=== PATIENT | female | born 1945 | race Caucasian/White ===

== ENCOUNTER 2018-01-21 00:46 | Inpatient (IN) | payer MEDICARE, BC ==
[2018-01-21] MEDS ORDERED: Ondansetron ODT 4 MG TAB ONE (01:00)
[2018-01-21] MEDS ORDERED: Ketorolac Tromethamine 30 MG/ML VIAL ONE (03:47)
[2018-01-21 04:20] LABS: CKMB 1.4 ng/mL (0-6.6); Troponin I Less than 0.010 ng/mL (< 0.028)
[2018-01-21 05:20] VITALS: BMI 22.7
[2018-01-21] MEDS ORDERED: Dextrose 5% in Water 1,000 ML IV PRN (05:30)
[2018-01-21] MEDS ORDERED: hydrALAZINE 20 MG/ML VIAL SLOW IVP PRN (05:30)
[2018-01-21] MEDS ORDERED: Sodium Chloride 0.9% 1,000 ML IV SCH (05:30)
[2018-01-21] MEDS ORDERED: Ondansetron ODT 4 MG TAB PO PRN (05:30)
[2018-01-21] MEDS ORDERED: Ondansetron HCl/PF 4 MG/2 ML Vial IVP PRN (05:30)
[2018-01-21] MEDS ORDERED: Dextrose 50% Abboject 50 ML SYRINGE SLOW IVP PRN ×2 (05:30)
[2018-01-21 05:44] LABS: #Basophils 0.1 thou/uL (0.0-0.2); #Eosinphils 0.3 thou/uL (0.0-0.7); #Lymphocytes 2.6 thou/uL (1.20-3.40); #Monocytes 0.9 thou/uL (0.11-0.59); #Neutrophils 8.4 thou/uL (1.40-6.50); %Basophils 0.7 % (0.0-1.0); %Eosinophils 2.2 % (0.0-10.0); %Lymphocytes 21.3 % (21.0-51.0); %Monocytes 7.2 % (0.0-10.0); %Neutrophils 68.6 % (42.0-75.0); Hemoglobin 11.6 g/dL (12.0-16.0); Mean Corpuscular HGB CONC 31.8 g/dL (32.0-36.0); Mean Corpuscular Hemoglobin 29.3 pg (27.0-31.0); Mean Corpuscular Volume 92.1 fL (78.0-98.0); Mean Platelet Volume 6.5 fL (7.4-10.4); Platelet Count 313 thou/uL (130-400); RBC Distribution Width 14.3 % (11.5-14.5); Red Blood Cell (RBC) Count 3.96 mill/uL (4.20-5.40); White Blood Cell (WBC) Count 12.2 thou/uL (4.8-10.8)
[2018-01-21 05:52] LABS: Anion Gap 12 mmol/L (10-20); BUN (Urea Nitrogen) 20 mg/dL (9.8-20.1); Calc. Creatinine Clearance 54 mL/min (70-130); Carbon Dioxide 25 mmol/L (23-31); Chloride 104 mmol/L (98-107); Estimated GFR-MDRD 68; Potassium 4.1 mmol/L (3.5-5.1); Sodium 137 mmol/L (136-145)
[2018-01-21 05:53] LABS: Calcium 9.7 mg/dL (7.8-10.44); Glucose 80 mg/dL (83-110); Magnesium 1.9 mg/dL (1.6-2.6); Phosphorus 3.7 mg/dL (2.3-4.7)
--- NOTE | 2018-01-21 07:49 | RAD ---
PORTABLE CHEST: Date: 01/21/18 HISTORY: Syncope. FINDINGS: Lungs are clear. No evidence of infiltrate or vascular congestion. Heart and mediastinum unremarkabl e. IMPRESSION: No acute abnormality identified. POS: [facility]
[2018-01-21] MEDS ORDERED: Meclizine HCl 12.5 MG TAB PO PRN (07:55)
--- NOTE | 2018-01-21 10:27 | PRG ---
DATE OF SERVICE: 01/21/2018 I personally interviewed and examined the patient and agree with documentation of Etelvina Kendrick PA-C dated 01/21/2018. SUBJECTIVE: Briefly, Ms. Donna Shukla is a 72-year-old woman who has had a couple of falls recently and yesterday with more significant of the two. She fell backwards and struck her head on concrete. She was taken to our emergency department where an occipital fracture was noted on the right side a nd some positional vertigo was felt as well. She was transferred here for further care. There is no intracranial hemorrhage, mass effect or other injury. Overnight, Ms. Shukla's vision has been the same. She feels a sense of motion with her vision, even though her body is not moving. Her other cranial nerves are working well and there is no lateralizi ng motor or sensory deficits that I can appreciate. CT examination was reviewed carefully. There is no intracranial hemorrhage. There is no contusion. There is no mass effect. There is no subarachn oid blood. There is a linear fracture in the occipital bone of the right side that is well approxima shawna. A CT examination of the cervical spine showed a wide spinal canal and no acute fracture or dislocatio n. Ms. Shukla had the closed head injury resulted in a skull fracture and vertigo. I told her to be ve ry careful about changing body positions quickly, to hold on to objects like a walker, the wall or a piece of furniture for a few seconds or the vertiginous symptoms settle before trying to walk, I do n ot want her falling and striking her head again. The skull fracture itself does not require surgical intervention. She can be discharged anytime. If the vertiginous symptoms continue for more than 3 weeks, she can go to otolaryngology for Kimberly-Hallpi ke maneuvers.
[2018-01-21] MEDS ORDERED: ALPRAZolam 0.5 MG TAB PO PRN (10:43)
--- NOTE | 2018-01-21 10:58 | PRG ---
DATE OF SERVICE: 01/21/2018 Please see Taco Mcclellan's complete H&P for details. SUBJECTIVE: Briefly, Ms. Shukla is a 72-year-old female who presents after a fall, seen in the [facility] department with some vertigo. Dr. Sweet has seen her and recommends no further therapy. PLAN: To get her up for some physical therapy today and see how she does. Possible discharge later.
[2018-01-21] MEDS ORDERED: Amlodipine 5 MG TAB PO SCH (11:45)
[2018-01-21] MEDS ORDERED: Atorvastatin Calcium 40 MG TAB PO SCH (11:45)
[2018-01-21] MEDS ORDERED: Calcium Carbonate + Vit D 1 TAB PO SCH ×2 (11:45→21:00)
[2018-01-21] MEDS ORDERED: cycloSPORINE 0.05% Ophthalmic Droperette EA EYE SCH ×2 (11:45→21:00)
[2018-01-21] MEDS ORDERED: Multivitamin W/ Minerals 1 TAB PO SCH (11:45)
[2018-01-21] MEDS ORDERED: Glimepiride 2 MG TAB PO SCH (11:45)
[2018-01-21] MEDS ORDERED: predniSONE 5 MG TAB PO SCH (11:45)
[2018-01-21 11:59] VITALS: TEMP 98
--- NOTE | 2018-01-21 13:04 | EKG ---
Test Reason : FALL Blood Pressure : / mmHG Vent. Rate : 077 BPM Atrial Rate : 077 BPM P-R Int : 208 ms QRS Dur : 090 ms QT Int : 412 ms P-R-T Axes : 060 015 048 degrees QTc Int : 466 ms Normal sinus rhythm Possible Left atrial enlargement Borderline ECG Confirmed by PATRICK HILL, SUNIL ([id number]), deputy editor in chief LEANDRA DONATO ([id number]) on 01/21/2018 1:03:40 PM Referred By: Confirmed By:SUNIL NGUYEN MD
[2018-01-21] MEDS ORDERED: Acetaminophen 500 MG TAB PO PRN (13:31)
[2018-01-21] MEDS ORDERED: Ibuprofen 200 MG TAB PO PRN (13:53)
[2018-01-21 15:39] VITALS: BP 145/84
--- NOTE | 2018-01-21 16:10 | HP ---
DATE OF ADMISSION: 01/21/2018 REQUESTING PHYSICIAN: Dr. Guerin. ATTENDING SURGEON: Dr. Ignacio. CONSULTATION: Neurosurgery, Dr. Sweet. HISTORY OF PRESENT ILLNESS: The patient is a 72-year-old woman, who was working in her gar den today when she suddenly fell. She is unsure if she tripped over the rock in the garden or if she had some sort of syncopal episode. She just knows that she fell backwards and struck her head on th e rocks. The patient had a cortical short duration of an altered mental status. The patient was abl e to get herself up, get into the house and notified EMS. The EMS took her to [place] where she underwent evaluation and examination and was noted to have a nondisplaced right occipital fracture. The remainder of her exam there was unremarkable. They have discussed her case with Dr. Sweet a nd he recommended that she was able to be discharged and then she would follow up as an outpatient. Prior to the patient being discharged, she suddenly became very dizzy and started having some visual changes, at which time they transferred to our facility for admission and observation. ALLERGIES: PENICILLINS, SINGULAIR, TETRACYCLINE, DOXYCYCLINE. CURRENT MEDICATIONS: Atorvastatin, lisinopril, Norvasc, sertraline, glipizide, Levemir, Xanax and me thotrexate. PAST MEDICAL HISTORY: Rheumatoid arthritis, hyperlipidemia, hypertension, diabetes. PAST SURGICAL HISTORY: Bilateral knee replacement, left rotator cuff repair, heart catheterization w ith no stent, hemorrhoidectomy. SOCIAL HISTORY: The patient currently lives at home with her . She denies drug, tobacco or a lcohol use. REVIEW OF SYSTEMS: A 10-point review of systems is negative unless otherwise stated. PHYSICAL EXAMINATION: VITAL SIGNS: Blood pressure 146/54, heart rate 74, respirations 18, oxygen saturation 95% on room ai r, temperature is 98.6. GENERAL: The patient is resting comfortably in the ER bed. She is awake, alert, and oriented x3. G lasgow coma scale is 15. HEENT: Head is normocephalic with tender to palpation to her right occiput consistent with her fract ure. Eyes: Extraocular motion intact. The patient does have some lateral nystagmus. Otherwise, pu pils are PERRLA. Ears are atraumatic without discharge. Nose is atraumatic without discharge. Orop harynx is clear. NECK: Nontender to the midline. The patient does have some right-sided paraspinous tenderness to pa lpation. Trachea is midline. No JVD. CHEST: Clear to auscultation with good inspiratory and expiratory effort. HEART: Regular rate and rhythm. ABDOMEN: Soft, flat, nontender with active bowel sounds. Pelvis is stable. EXTREMITIES: Neurovascularly intact x4. Strength is 5/5. Capillary refill is less than 3 seconds. Pulses are 2+. BACK: Nontender and atraumatic. LABORATORY FINDINGS: Primarily all labs are still pending. Her CK-MB is 1.4. Her troponin is less than 0.010. RADIOGRAPHIC FINDINGS: CT of the brain without contrast shows a nondisplaced right occipital bone fr acture with small posterior midline scalp soft tissue hematoma, no acute post-traumatic or intracrani al sequela. CT of the C-spine without contrast shows no evidence of cervical spine fracture. ASSESSMENT AND PLAN: 1. Status post ground level fall. 2. Possible syncope. 3. Nondisplaced right occipital fracture. 4. Postconcussive syndrome. Plan will be to admit the patient to telemetry floor. We will evaluate her labs and then discussed p ursuing of further syncopal type workup though with the further discussion with the patient, it sound s like this is going to be most likely just a mechanical fall. The patient will have pulmonary toile t, gastritis, mechanical VTE prophylaxis started. We will ask the neurosurgeons to evaluate her in t he morning. The evaluation, examination, laboratory and radiographic findings will be discussed with Dr. Ignacio .
--- NOTE | 2018-01-21 19:49 | CON ---
DATE OF CONSULTATION: 01/21/2018 CHIEF COMPLAINT: Fall, skull fracture, headache and vertigo. HISTORY OF PRESENT ILLNESS: This is a very pleasant 72-year-old female who reports that she was watering her garden last night and fell backwards and hit her head on a concrete step. She states that she is unsure why she lost her balance. She denies any dizziness at that time or weakness. She states that she did not lose consciousness. The patient was taken to the ER at [place] who reported a linear skull fracture posteriorly and no neurological deficits at the time. She was going to be discharged from the [place] ER; however, she started to have some positional vertigo as well as blurriness in her vision. She was transferred to [place] last night. She has been admitted through trauma. The patient states that her pain is currently a 6/10. She denies any muscle weakness, numbness or tingling. Her pain is in the posterior aspect of her skull, as well as a dull headache. The patient states that she is dizzy if she sits up or moves, change position. If she has been reading, some signs; she says that they move side to side a little bit. PAST MEDICAL HISTORY: Significant for rheumatoid arthritis, hyperlipidemia, diabetes, and hypertension. FAMILY HISTORY: Mother from cancer. PAST SURGICAL HISTORY: Bilateral knee replacements, left rotator cuff, heart catheterization with no stents and hemorrhoidectomy. SOCIAL HISTORY: She is a nonsmoker. She does not drink any alcohol, does not use any other drugs. ALLERGIES: AMOXICILLIN, AUGMENTIN, DOXYCYCLINE, MONTELUKAST sodium, POTASSIUM Clavulanate, SINGULAIR and TETRACYCLINE. REVIEW OF SYSTEMS: Positive for dizziness and vertigo. Patient denies any changes in hearing. No difficulty swallowing or sore throat. No abdominal pain or vomiting. She has had occasional nausea since last night. The patient denies any bowel or bladder dysfunction. No diarrhea, constipation or muscle aches. PHYSICAL EXAMINATION: VITAL SIGNS: T-max 97.8, heart rate 71, BP 157/72. GENERAL: Patient is comfortable in her hospital room. She is alert and oriented to person, place and time. No apparent distress. HEAD: The patient has a hematoma on the posterior occiput, normocephalic. EYES: Pupils are equal, round, and reactive to light. Extraocular muscles are intact. Nystagmus is present. ENT: Nose exam is normal. No deformity, bleeding. Mouth exam is normal. Mucous membranes are moist. NECK: Normal range of motion. Trachea is midline. RESPIRATORY: The patient is breathing, relaxed on normal room air. Symmetrical chest rise. CARDIOVASCULAR: Heart rate and rhythm normal. NEUROLOGIC: Patient is alert and oriented x3. Cranial nerves II-XII are intact. Speech is normal, fluid and spontaneous. Normal fund of knowledge, recent and distant memory is intact. There are no focal motor deficits in upper or lower extremities. Patient has slight decreased sensation on the right side of her body. IMAGING: CT skull right side occipital fracture. No bleeding noted in the brain, CT of the neck wide cervical canal. No sign of fracture. ASSESSMENT: There is a right occiput fracture and positional vertigo. PLAN: #1 The skull fracture will heal on its own, at this time, she does not need any neurosurgical intervention. #2 Positional vertigo is accosicated with the fx and its should progressively improve over the next 2-3 weeks; however, if it does not, she should see ENT. Patient has been informed to change position slowly. She should take a few seconds and wait for the room to stop moving as she changes position from laying to sitting, sit to standing, and make sure she has something to hold onto if her vertigo gets worse while she is moving. Patient reveals understanding. DAWIT
[2018-01-21] MEDS ORDERED: [UNRECOGNIZED DRUG - OTHER] PO SCH (21:00)
[2018-01-21] MEDS ORDERED: VIT C CA PO SCH (21:00)
[2018-01-21] MEDS ORDERED: CHONDRO SU A PO SCH (21:00)
[2018-01-21] MEDS ORDERED: GLUC SU PO SCH (21:00)
[2018-01-22] MEDS ORDERED: Glimepiride 2 MG TAB PO SCH (08:00)
[2018-01-22] MEDS ORDERED: predniSONE 5 MG TAB PO SCH (08:00)
[2018-01-22] MEDS ORDERED: Ubidecarenone 50 MG CAP PO SCH (09:00)
[2018-01-22] MEDS ORDERED: Amlodipine 5 MG TAB PO SCH (09:00)
[2018-01-22] MEDS ORDERED: Insulin Glargine 9 UNITS in Pre-Filled Syringe 1 EACH SC SCH (09:00)
[2018-01-22] MEDS ORDERED: INSULIN DETEMIR SQ SCH (09:00)
[2018-01-22] MEDS ORDERED: Atorvastatin Calcium 40 MG TAB PO SCH (09:00)
[2018-01-22] MEDS ORDERED: Multivitamin W/ Minerals 1 TAB PO SCH (09:00)
[2018-01-22] MEDS ORDERED: Methotrexate Sodium 2.5 MG TAB PO SCH (09:00)
[2018-01-22] MEDS ORDERED: Lisinopril 20 MG TAB PO SCH (21:00)
== END 2018-01-21 18:26 | disposition home or self-care (01) | DRG 87 ==
LOC: ERS 00:46 → 2NO 04:03
PROVIDERS: ADMIT Surgery; ATTEND Surgery
DX: S02.11GA Other fracture of occiput, right side, initial encounter for closed fracture (principal); S00.03XA Contusion of scalp, initial encounter; F07.81 Postconcussional syndrome; M06.9 Rheumatoid arthritis, unspecified; E78.5 Hyperlipidemia, unspecified; I10 Essential (primary) hypertension; H81.11 Benign paroxysmal vertigo, right ear; E11.9 Type 2 diabetes mellitus without complications; G44.309 Post-traumatic headache, unspecified, not intractable; Z96.653 Presence of artificial knee joint, bilateral; Z98.61 Coronary angioplasty status; Z79.84 Long term (current) use of oral hypoglycemic drugs; W01.0XXA Fall on same level from slipping, tripping and stumbling without subsequent striking against object, initial encounter; Y93.H2 Activity, gardening and landscaping; Y92.096 Garden or yard of other non-institutional residence as the place of occurrence of the external cause
CPT/HCPCS: 36415; 36416; 71045; 80048; 82553; 83735; 83880; 84100; 84484; 85025; 93005; 96374; G0390; G8978-GP-CL; G8979-GP-CJ; J0360; J1885; Q0162

== ENCOUNTER 2018-02-22 12:05 | Outpatient (CLI) | payer MEDICARE, BC | END 2018-02-22 12:06 | disposition home or self-care (01) | LOC: BICULT 12:05 | PROVIDERS: ATTEND Otolaryngology Plastic Surgery within the Head & Neck | DX: E04.1 Nontoxic single thyroid nodule (principal) | CPT/HCPCS: 76536 ==

== ENCOUNTER 2018-03-02 11:03 | Outpatient (CLI) | payer MEDICARE, BC | END 2018-03-02 11:04 | disposition home or self-care (01) | LOC: BICMAMMO 11:03 | PROVIDERS: ATTEND Obstetrics & Gynecology | DX: Z12.31 Encounter for screening mammogram for malignant neoplasm of breast (principal) | CPT/HCPCS: 77063; 77067 ==

== ENCOUNTER 2018-03-29 15:15 | Outpatient (CLI) | payer MEDICARE, BC ==
--- NOTE | 2018-03-29 16:34 | MRI ---
MRI BRAIN NONCONTRAST: HISTORY: 72-year-old female with G45.9 transient cerebral ischemic attack, unspecified. Diplopia. FINDINGS: The ventricles are normal in size and configuration. There is no restricted diffusion, midline shift or any other mass effect, recent intraaxial hemorrhage, or extraaxial fluid collection. There are n umerous small foci of T2-hyperintensities in the cerebral white matter consistent with chronic ischem ic white matter changes due to microvascular atherosclerosis, not unusual for age. IMPRESSION: 1. Mild-moderate chronic ischemic white matter changes. 2. Otherwise negative. jn POS: [facility]
== END 2018-03-29 15:16 | disposition home or self-care (01) ==
LOC: TBSIIMAG 15:15
PROVIDERS: ATTEND Neurological Surgery
DX: G45.9 Transient cerebral ischemic attack, unspecified (principal); G93.89 Other specified disorders of brain
CPT/HCPCS: 70551

== ENCOUNTER 2018-07-26 19:17 | Emergency (ER) | payer MEDICARE, BC ==
--- NOTE | 2018-07-26 20:39 | RAD ---
RIGHT HIP TWO VIEWS: 07/26/18 HISTORY: 72-year-old female with history of right hip pain following an injury. Mild degenerative changes. No acute fracture or dislocation. IMPRESSION: Mild degenerative changes without fracture or dislocation. POS: [facility]
[2018-07-26 22:45] LABS: Bilirubin Negative (Negative); Blood, Urine Small (Negative); Clarity CLOUDY (Clear); Glucose, Urine (Dipstick) Negative (Negative); Leukocyte Large (Negative); Nitrite Negative (Negative); Protein, Urine (Dipstick) 100 mg/dL (Neg-Trace); Specific Gravity, Urine 1.018 (1.002-1.036)
[2018-07-26 22:48] LABS: Pathc Cast-AUWi Flag 4.21 (0-2.49)
[2018-07-26 22:56] LABS: Hyaline Casts/LPF NONE SEEN LPF (0-3 Hyaline)
[2018-07-26 22:57] LABS: Bacteria/HPF Rare-Few HPF (None Seen)
[2018-07-26] MEDS ORDERED: Ketorolac Tromethamine 30 MG/ML VIAL ONE (23:12)
== END 2018-07-26 23:35 | disposition home or self-care (01) ==
LOC: ERS 19:17
DX: S70.01XA Contusion of right hip, initial encounter (principal); N39.0 Urinary tract infection, site not specified; I10 Essential (primary) hypertension; E11.9 Type 2 diabetes mellitus without complications; E78.00 Pure hypercholesterolemia, unspecified; Z79.899 Other long term (current) drug therapy; W01.0XXA Fall on same level from slipping, tripping and stumbling without subsequent striking against object, initial encounter
CPT/HCPCS: 81003; 81015; 96374; J1885

== ENCOUNTER 2019-01-04 10:57 | Outpatient (CLI) | payer MEDICARE, BC ==
--- NOTE | 2019-01-04 11:46 | CT ---
CT HEAD WITHOUT CONTRAST: Date: 01/04/19 Multiple axial tomograms obtained through the head without IV enhancement. INDICATION: Headache. COMPARISON: 06/16/18. FINDINGS: Mild cortical volume loss. Ventricles have normal size and position. There are mild chronic ischemic white matter changes. No mass or hemorrhage. No evidence of acute infarct. Sinuses and mastoids are w ell aerated. IMPRESSION: No acute process. No significant change from prior exam. POS: [facility]
== END 2019-01-04 10:58 | disposition home or self-care (01) ==
LOC: BICCT 10:57
PROVIDERS: ATTEND Physician Assistant
DX: G44.89 Other headache syndrome (principal)
CPT/HCPCS: 70450

== ENCOUNTER 2019-03-05 12:35 | Outpatient (CLI) | payer MEDICARE, BC ==
--- NOTE | 2019-03-05 14:05 | RAD ---
Exam: Barium swallow esophagram HISTORY: Dysphagia. COMPARISON: None FINDINGS: Initial deputy commissioner radiograph demonstrates atherosclerosis and slight elongation aorta. Normal c ardiac silhouette. Pulmonary vessels and hilum are normal. Costophrenic angles are clear. Hyperinflation with presumed chronic changes. No masses or consolidation. No pneumothorax The cervical esophagus has a normal course and caliber. There is evidence of flash penetration, witho ut evidence of aspiration. However, the patient did have multiple episodes of coughing after being administered thick barium. The thoracic esophagus has a normal course and caliber. There is evidence of esophageal dysmotility w ith tertiary contractions. There is evidence of reflux during intermittent fluoroscopy. 13 mm standard barium tablet passed without difficulty. IMPRESSION: 1. Penetration with thick barium. No definite aspiration is not appreciated, the patient did cough mu ltiple times. This would imply aspiration. Consider further evaluation with a modified barium swallow in the presence of the speech pathologist 2. Esophageal dysmotility with tertiary contractions. 3. Reflux during intermittent fluoroscopy.
--- NOTE | 2019-03-05 14:28 | ULT ---
EXAM: US Thyroid STANDARD PROVIDED CLINICAL HISTORY: Difficulty swallowing. Thyroid nodule. Patient reports history of prior thyroid FNA. COMPARISON: 02/22/2018 FINDINGS: The right lobe of the thyroid gland measures 4.3 cm x 1.9 cm x 1.6 cm. As noted on the prior examinat ion, there is a heterogeneous nodule in the right lobe of the thyroid gland which measures 1.1 cm x 0.6 cm x 0.8 cm with previous measurements of 1.2 cm x 0.6 cm x 0.7 cm. This heterogeneous nodule lomeli s contain punctate echogenic foci. A tiny hypoechoic nodule measuring 0.4 cm is seen in the inferior pole right lobe of the thyroid gland. This was not seen on prior exam. The left lobe of thyroid gland measures 4 cm x 1.2 cm x 1.3 cm. A heterogeneous nodule is seen in the left lateral aspect of the thyroid isthmus measuring 0.6 cm. This was also present on the prior exam and not significantly changed in size. No additional nodule is seen in the left lobe of thyroid gland. Thyroid ultrasound is overall stable compared to the prior study in 2018. These thyroid nodules were also seen on the prior thyroid ultrasound on 02/27/2015. IMPRESSION: 1. Bilateral thyroid nodules as described above, overall stable in size compared to the prior study i n 2018. 2. Based on the more dominant nodule in the right lobe of thyroid gland, this would be a TI-RADS leve l 5 nodule with fine-needle aspiration of the right thyroid nodule recommended based on current guidelines. However, the patient does report history of a prior thyroid FNA. Clinical correlation is recommended.
== END 2019-03-05 12:36 | disposition home or self-care (01) ==
LOC: RAD 12:35
PROVIDERS: ATTEND Otolaryngology Plastic Surgery within the Head & Neck
DX: E04.2 Nontoxic multinodular goiter (principal); R13.10 Dysphagia, unspecified; K22.4 Dyskinesia of esophagus
CPT/HCPCS: 74220; 76536

== ENCOUNTER 2019-04-04 11:08 | Outpatient (CLI) | payer MEDICARE, BC | END 2019-04-04 11:09 | disposition home or self-care (01) | PROVIDERS: ATTEND Otolaryngology Plastic Surgery within the Head & Neck | DX: R13.13 Dysphagia, pharyngeal phase (principal); R63.3 Feeding difficulties | CPT/HCPCS: 74230 ==

== ENCOUNTER 2019-05-04 14:28 | Outpatient (CLI) | payer MEDICARE, BC ==
--- NOTE | 2019-05-04 15:42 | MRI ---
MRI thoracic spine noncontrast HISTORY: Ataxia. Muscle spasms. Back pain. FINDINGS: The spinal cord throughout the thoracic levels has a normal appearance without evidence of compression, expansion, or abnormal signal. Minimal rightward convex curvature. Vertebral body heights and AP alignment are maintained. Bone marrow signal is slightly heterogeneous without focal a bnormality evident. On the sagittal images, there are very mild posterior disc bulges at the T6-7, 6 T7-8, T8-9, T9-T10, and T10-11 levels. No significant effacement of the thecal sac or compromise of the central canal diameter. Neural foramina are patent. 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 Much smaller Tarlov cysts are associated with several other thoracic nerve roots. IMPRESSION: Very mild degenerative changes. No focal disc herniation or nerve root compression.
--- NOTE | 2019-05-04 15:47 | MMO ---
Bilateral MAMMO Bilat Screen [facility]. CLINICAL HISTORY: Patient is 73 years old and is seen for screening. The patient has no family history of breast cancer. The patient has no personal history of cancer. VIEWS: The views performed were: bilateral craniocaudal with tomosynthesis and bilateral mediolateral oblique with tomosynthesis. FILMS COMPARED: The present examination has been compared to a prior imaging study performed at [facility] on 03/02/2018. This study has been interpreted with the assistance of computer-aided detection. MAMMOGRAM FINDINGS: There are scattered fibroglandular densities. There are no suspicious masses, suspicious calcifications, or new areas of architectural distortion. IMPRESSION: THERE IS NO MAMMOGRAPHIC EVIDENCE OF MALIGNANCY. A ROUTINE FOLLOW-UP MAMMOGRAM IN 1 YEAR IS RECOMMENDED. THE RESULTS OF THIS EXAM WERE SENT TO THE PATIENT. ACR BI-RADS Category 1 - Negative MAMMOGRAPHY NOTE: 1. A negative mammogram report should not delay a biopsy if a dominant of clinically suspicious mass is present. 2. Approximately 10% to 15% of breast cancers are not detected by mammography. 3. Adenosis and dense breasts may obscure an underlying neoplasm. Reported by: VANESSA DE GUZMAN MD Electonically Signed: [id number]
== END 2019-05-04 14:29 | disposition home or self-care (01) ==
LOC: BICMRI 14:28
PROVIDERS: ATTEND Psychiatry & Neurology Neurology
DX: Z12.31 Encounter for screening mammogram for malignant neoplasm of breast (principal); G62.9 Polyneuropathy, unspecified; R27.0 Ataxia, unspecified; M47.814 Spondylosis without myelopathy or radiculopathy, thoracic region
CPT/HCPCS: 72146; 77063; 77067

== ENCOUNTER 2020-02-13 11:56 | Outpatient (CLI) | payer MEDICARE, BC, OTHER ==
[2020-02-14 14:46] LABS: SARS-CoV-2 MS2 Positive; SARS-CoV-2 N Gene Negative; SARS-CoV-2 S Gene Negative; SARS-CoV-2 orf1ab Negative
== END 2020-02-13 11:57 | disposition home or self-care (01) ==
LOC: LABBT 11:56
PROVIDERS: ATTEND Orthopaedic Surgery
DX: Z01.812 Encounter for preprocedural laboratory examination (principal); Z11.59 Encounter for screening for other viral diseases; S42.494A Other nondisplaced fracture of lower end of right humerus, initial encounter for closed fracture
CPT/HCPCS: 87635; U0003

== ENCOUNTER 2020-02-18 09:19 | Day surgery (SDC) | payer MEDICARE, BC ==
[2020-02-18] MEDS ORDERED: Dexamethasone 20 MG/5 ML VIAL ONE (09:38)
[2020-02-18] MEDS ORDERED: PROPOFOL 200 MG/20 ML VIAL ONE (09:38)
[2020-02-18] MEDS ORDERED: Glycopyrrolate 0.2 MG/ML 5 ML SYRINGE ONE (09:38)
[2020-02-18] MEDS ORDERED: Ropivacaine 0.2% HCl/PF (40 MG/20 ML VIAL) ONE (09:38)
[2020-02-18] MEDS ORDERED: Rocuronium Bromide 10 MG/ML (10ML VIAL) ONE (09:38)
[2020-02-18] MEDS ORDERED: Bupivacaine HCl 0.5%/Epinephrine 1:200,000/PF 30 ml Vial ONE (09:38)
[2020-02-18] MEDS ORDERED: Ondansetron PF 4 MG/2 ML Vial ONE (09:38)
[2020-02-18] MEDS ORDERED: EPHEDRINE 25 MG/5 ML SYRINGE ONE (09:38)
[2020-02-18] MEDS ORDERED: Lidocaine 1% PF 5 ML VIAL ONE (09:38)
[2020-02-18] MEDS ORDERED: Midazolam HCl 2 mg/2 ml Vial ONE (11:04)
[2020-02-18] MEDS ORDERED: Fentanyl 100 MCG/2 ML VIAL ONE ×2 (11:04→13:03)
[2020-02-18] MEDS ORDERED: Ketorolac Tromethamine 30 MG/ML VIAL IVP PRN (11:27)
[2020-02-18] MEDS ORDERED: HYDROcodone/Acetaminophen 10/325 mg Tablet PO PRN ×2 (11:27)
[2020-02-18] MEDS ORDERED: traMADol HCl 50 MG TAB PO PRN ×2 (11:27)
[2020-02-18] MEDS ORDERED: Ondansetron PF 4 MG/2 ML Vial IVP PRN (11:27)
[2020-02-18] MEDS ORDERED: Ropivacaine 0.2% 550 ML 550 ML NERVE BLCK SCH (11:27)
[2020-02-18] MEDS ORDERED: Zolpidem Tartrate 5 MG TAB PO PRN (11:27)
[2020-02-18] MEDS ORDERED: Promethazine HCl 25 MG/ML VIAL IM PRN (11:27)
[2020-02-18] MEDS ORDERED: Fentanyl 100 MCG/2 ML VIAL SLOW IVP PRN (11:27)
--- NOTE | 2020-02-18 17:16 | RAD ---
Exam:Intraoperative fluoroscopy HISTORY: Fracture. Internal fixation. COMPARISON: None FINDINGS: 3 fluoroscopic images demonstrate placement of internal fixation. Plate with screws at the level of distal humerus. Fracture lucency is identified. Postoperative changes. Alignment is near-anatomic. Exposure: 19.6 seconds, 0.39 mGy IMPRESSION: Intraoperative fluoroscopy.
--- NOTE | 2020-02-18 20:25 | OP ---
DATE OF PROCEDURE: 02/18/2020 PREOPERATIVE DIAGNOSIS: Right T-condylar distal humerus fracture, intra-articular. POSTOPERATIVE DIAGNOSIS: Right T-condylar distal humerus fracture, intra-articular. PROCEDURE PERFORMED: Open reduction and internal fixation of right distal humerus. ANESTHESIA: General. 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 TOURNIQUET TIME: Zero. ESTIMATED BLOOD LOSS: 100 mL. IMPLANTS: Synthes 2.7/3.5 variable angle LCP distal medial humeral plate with appropriate screws. COMPLICATIONS: None. DRAINS: None. SPECIMEN: None. OUTCOME: Satisfactory stabilization. INDICATIONS FOR PROCEDURE: The patient is a 74-year-old lady status post mechanical fall, landing on outstretched right arm, sustaining a comminuted distal humerus fracture. She was initially seen and evaluated in the [facility] and then subsequently referred to our clinic for evaluation. Upon evaluation, the patient was found to have a displaced and comminuted fracture. Given these findings, it was decided to proceed with open reduction and internal fixation. Informed consent has been obtained and all questions answered. DESCRIPTION OF PROCEDURE: The patient was brought to the operating room after placement of a pain catheter and then a general anesthetic performed. The patient was then positioned in the left lateral decubitus position with the right arm held over a bolster. Next, a midline posterior incision was made after skin was sharply incised. Dissection was carried down to the underlying triceps tendon and olecranon. Inspection of the fracture showed that the lateral column was essentially nondisplaced, and given this finding, I opted to first proceed medially to stabilize the comminuted portion of the fracture. As such, the triceps was left in place. Coming just medial to the triceps, dissection was carried down bluntly. The ulnar nerve was identified, released and reflected anteriorly gaining access to the medial condyle of the distal humerus. There was found to be early callus formation. This had to be removed using a combination of elevators, rongeur and curette. Once the fracture fragment could be mobilized, it was reduced and held in place with a combination of K-wires and bone tenaculum. She was found to have a large osteophyte at the medial aspect of the olecranon. This osteophyte was debrided with a rongeur. Next, a medial column plate was applied to the far medial aspect of the distal humerus. This held in place proximally with 3.5-mm cortical screw and then distally with a metaphyseal screw getting good approximation of the plate against the medial cortex of the distal humerus. Next, additional locking screws were applied including one that went from the medial column all the way over to the lateral side in addition to the cortical screws passing proximal to the fracture, gaining excellent stability of both the medial and lateral columns. The elbow was brought through range of motion. There was found to be absolutely no motion at the lateral column and as such was opted to just proceed with this medial plate. Final AP and lateral C-arm images were obtained and then wound closure performed after thorough irrigation with bulb syringe. Wound closure performed with 0 Vicryl for fascial, 2-0 Vicryl subcutaneously, and sree for the skin. A Xeroform gauze, Webril, and a long-arm posterior fiberglass splint were then applied to the arm. The patient was then transferred to recovery room in stable condition. There were no complications. She tolerated the procedure well. Job ID: [id number]
== END 2020-02-18 17:55 | disposition home or self-care (01) ==
LOC: SDC 09:19
PROVIDERS: ATTEND Orthopaedic Surgery
PROC: 0PSF04Z Reposition Right Humeral Shaft with Internal Fixation Device, Open Approach (ICD-10-PCS; principal; 2020-02-18)
PROC: 3E0T3BZ Introduction of Anesthetic Agent into Peripheral Nerves and Plexi, Percutaneous Approach (ICD-10-PCS; 2020-02-18)
DX: S42.471A Displaced transcondylar fracture of right humerus, initial encounter for closed fracture (principal); M25.721 Osteophyte, right elbow; G89.18 Other acute postprocedural pain; M19.049 Primary osteoarthritis, unspecified hand; M19.039 Primary osteoarthritis, unspecified wrist; E11.9 Type 2 diabetes mellitus without complications; E78.5 Hyperlipidemia, unspecified; I10 Essential (primary) hypertension; K21.9 Gastro-esophageal reflux disease without esophagitis; J44.9 Chronic obstructive pulmonary disease, unspecified; Z79.4 Long term (current) use of insulin; Z79.52 Long term (current) use of systemic steroids; Z79.899 Other long term (current) drug therapy; Z88.0 Allergy status to penicillin; Z88.1 Allergy status to other antibiotic agents; Z88.8 Allergy status to other drugs, medicaments and biological substances; W19.XXXA Unspecified fall, initial encounter
CPT/HCPCS: 24545; 64416; 73070; 76000; 93005; A4306; C1713 ×2; 36416; 93010; J0670; J1100; J2250; J2405; J2704; J2795; J3010

== ENCOUNTER 2020-04-03 10:32 | Outpatient (CLI) | payer MEDICARE, BC ==
--- NOTE | 2020-04-03 11:21 | ULT ---
THYROID ULTRASOUND: Date: 04/03/2020 HISTORY: Follow-up of thyroid nodules. COMPARISON: 03/05/2019 study. FINDINGS: Real-time imaging of the right and left lobes of the gland were performed. The right lobe measures 1.6 x 1.9 x 4.3 cm. The left lobe measures 1.3 x 1.2 x 4.0 cm. Bilateral thyroid nodules are noted: On the right side, a solid hypoechoic nodule seen in the mid pole region measures approximately 8.0 x 11.0 mm. It has some internal punctate calcifications, but is stable in appearance as compared to th e prior exam. Smaller complex cystic nodules are seen in the lower pole region. On the right side, there is a 6.0 mm nodule within the left lobe, closer to the isthmus region. This is also stable. IMPRESSION: Stable bilateral thyroid nodules. Patient does report a history of previous fine needle aspiration. T he more suspicious right lobe thyroid nodule with the punctate calcifications is stable in size and a ppearance. POS: [facility]
== END 2020-04-03 10:33 | disposition home or self-care (01) ==
LOC: BICULT 10:32
PROVIDERS: ATTEND Otolaryngology Plastic Surgery within the Head & Neck
DX: E04.2 Nontoxic multinodular goiter (principal)
CPT/HCPCS: 76536

== ENCOUNTER 2020-05-09 10:59 | Outpatient (CLI) | payer MEDICARE, BC ==
--- NOTE | 2020-05-09 12:03 | MMO ---
Bilateral MAMMO Bilat Screen [facility]. CLINICAL HISTORY: Patient is 74 years old and is seen for screening. The patient has no family history of breast cancer. The patient has no personal history of cancer. VIEWS: The views performed were: bilateral craniocaudal with tomosynthesis and bilateral mediolateral oblique with tomosynthesis. FILMS COMPARED: The present examination has been compared to prior imaging studies performed at [facility] on 03/02/2018 and 05/04/2019, and at [facility] on 12/11/2014 and 12/17/2015. This study has been interpreted with the assistance of computer-aided detection. MAMMOGRAM FINDINGS: There are scattered fibroglandular densities. There are no suspicious masses, suspicious calcifications, or new areas of architectural distortion. IMPRESSION: THERE IS NO MAMMOGRAPHIC EVIDENCE OF MALIGNANCY. A ROUTINE FOLLOW-UP MAMMOGRAM IN 1 YEAR IS RECOMMENDED. THE RESULTS OF THIS EXAM WERE SENT TO THE PATIENT. ACR BI-RADS Category 1 - Negative MAMMOGRAPHY NOTE: 1. A negative mammogram report should not delay a biopsy if a dominant of clinically suspicious mass is present. 2. Approximately 10% to 15% of breast cancers are not detected by mammography. 3. Adenosis and dense breasts may obscure an underlying neoplasm. Reported by: LUDMILA HADLEY MD Electonically Signed: [id number]
== END 2020-05-09 11:00 | disposition home or self-care (01) ==
LOC: BICMAMMO 10:59
PROVIDERS: ATTEND Obstetrics & Gynecology
DX: Z12.31 Encounter for screening mammogram for malignant neoplasm of breast (principal)
CPT/HCPCS: 77063; 77067

== ENCOUNTER 2020-09-28 19:00 | Outpatient (CLI) | payer MEDICARE, BC | END 2020-09-28 19:01 | disposition home or self-care (01) | LOC: SLEEPLAB 19:00 | PROVIDERS: ATTEND Physician Assistant | DX: G47.33 Obstructive sleep apnea (adult) (pediatric) (principal); R53.83 Other fatigue; I10 Essential (primary) hypertension; R06.89 Other abnormalities of breathing | CPT/HCPCS: 95811 ==

== ENCOUNTER 2021-01-13 09:49 | Outpatient (CLI) | payer MEDICARE, BC | END 2021-01-13 09:50 | disposition home or self-care (01) | LOC: MRI 09:49 | PROVIDERS: ATTEND Physician Assistant | DX: R41.0 Disorientation, unspecified (principal); I67.82 Cerebral ischemia | CPT/HCPCS: 70551 ==

== ENCOUNTER 2021-04-09 12:11 | Outpatient (CLI) | payer MEDICARE, BC | END 2021-04-09 12:12 | disposition home or self-care (01) | LOC: BICULT 12:11 | PROVIDERS: ATTEND Otolaryngology Plastic Surgery within the Head & Neck | DX: E04.1 Nontoxic single thyroid nodule (principal) | CPT/HCPCS: 76536 ==

== ENCOUNTER 2021-05-15 11:52 | Outpatient (CLI) | payer MEDICARE, BC | END 2021-05-15 11:53 | disposition home or self-care (01) | LOC: BICMAMMO 11:52 | PROVIDERS: ATTEND Physician Assistant | DX: Z12.31 Encounter for screening mammogram for malignant neoplasm of breast (principal) | CPT/HCPCS: 77063; 77067 ==

== ENCOUNTER 2022-07-14 12:56 | Emergency (ER) | payer OTHER, MEDICARE, BC ==
[2022-07-14] MEDS ORDERED: HYDROcodone/Acetaminophen 5/325 mg Tablet ONE ×2 (14:56→19:43)
[2022-07-14 16:07] LABS: #Basophils 0.1 thou/uL (0.0-0.2); #Eosinphils 0.1 thou/uL (0.0-0.7); #Lymphocytes 1.7 thou/uL (1.20-3.40); #Monocytes 0.8 thou/uL (0.11-0.59); #Neutrophils 9.8 thou/uL (1.40-6.50); %Basophils 0.5 % (0.0-1.0); %Eosinophils 0.7 % (0.0-10.0); %Lymphocytes 13.7 % (21.0-51.0); %Monocytes 6.5 % (0.0-10.0); %Neutrophils 78.6 % (42.0-75.0); Hemoglobin 10.3 g/dL (12.0-16.0); Mean Corpuscular HGB CONC 32.5 g/dL (32.0-36.0); Mean Corpuscular Hemoglobin 28.1 pg (27.0-31.0); Mean Corpuscular Volume 86.4 fl (78.0-98.0); Mean Platelet Volume 6.6 fL (7.4-10.4); Platelet Count 429 10x3/uL (130-400); Red Blood Cell (RBC) Count 3.65 mill/uL (4.20-5.40); White Blood Cell (WBC) Count 12.5 10x3/uL (4.8-10.8)
[2022-07-14 16:23] LABS: ALT (SGPT) 10 U/L (8-55); AST (SGOT) 18 U/L (5-34); Albumin 3.7 g/dL (3.4-4.8); Alkaline Phosphatase 70 U/L (40-110); Anion Gap 13 mmol/L (10-20); BUN (Urea Nitrogen) 14 mg/dL (9.8-20.1); Bilirubin, Total 0.4 mg/dL (0.2-1.2); Calc. Creatinine Clearance 0 mL/min (70-130); Calcium 9.2 mg/dL (7.8-10.44); Carbon Dioxide 25 mmol/L (23-31); Chloride 100 mmol/L (98-107); Estimated GFR 70; Globulin 3.6 g/dL (2.4-3.5); Glucose 212 mg/dL (83-110); Potassium 4.1 mmol/L (3.5-5.1); Protein, Total 7.3 g/dL (5.8-8.1); Sodium 134 mmol/L (136-145)
== END 2022-07-14 21:22 | disposition short-term general hospital (02) ==
LOC: ERS 12:56
DX: R55 Syncope and collapse (principal); E78.00 Pure hypercholesterolemia, unspecified; I10 Essential (primary) hypertension; E11.9 Type 2 diabetes mellitus without complications; W01.0XXA Fall on same level from slipping, tripping and stumbling without subsequent striking against object, initial encounter; Z79.899 Other long term (current) drug therapy
CPT/HCPCS: 70450; 71045; 72125; 72131; 72170; 80053; 84484; 85025; 93005

== ENCOUNTER 2022-11-02 19:18 | Inpatient (IN) | payer OTHER, MEDICARE, BC ==
[2022-11-02] MEDS ORDERED: Ipratropium/Albuterol 3 ML NEB NEB PRN (20:41)
[2022-11-02] MEDS ORDERED: Ondansetron PF 4 MG/2 ML Vial IVP PRN (20:41)
[2022-11-02] MEDS ORDERED: Acetaminophen 325 MG TAB PO SCH (20:45)
[2022-11-02] MEDS ORDERED: Dextrose 50% Abboject 50 ML SYRINGE SLOW IVP PRN (20:49)
[2022-11-02] MEDS ORDERED: HumaLOG 300 UNITS/3 ML VIAL SC PRN (20:49)
[2022-11-02] MEDS ORDERED: Dextrose 5% in Water 1,000 ML IV PRN (20:49)
[2022-11-02] MEDS ORDERED: hydrALAZINE 20 MG/ML VIAL SLOW IVP PRN (20:59)
[2022-11-02] MEDS: Atorvastatin Calcium 40 MG TAB PO SCH (22:09)
[2022-11-02] MEDS: Famotidine/PF 20 mg/2ml Vial SLOW IVP SCH (22:09)
[2022-11-02] MEDS: Morphine 2 MG/ML VIAL SLOW IVP PRN (22:10)
[2022-11-02] MEDS: Acetaminophen 500 MG TAB PO SCH (23:07)
[2022-11-02 23:20] VITALS: BMI 17.3
[2022-11-03] MEDS: Acetaminophen 500 MG TAB PO SCH ×4 (05:25→23:13)
[2022-11-03] MEDS: Morphine 2 MG/ML VIAL SLOW IVP PRN ×2 (05:25→11:27)
[2022-11-03 06:56] LABS: #Basophils 0.1 thou/uL (0.0-0.2); #Eosinphils 0.1 thou/uL (0.0-0.7); #Lymphocytes 1.8 thou/uL (1.20-3.40); #Neutrophils 8.5 thou/uL (1.40-6.50); %Basophils 0.7 % (0.0-1.0); %Eosinophils 0.9 % (0.0-10.0); %Lymphocytes 15.7 % (21.0-51.0); %Monocytes 8.4 % (0.0-10.0); %Neutrophils 74.3 % (42.0-75.0); Hemoglobin 10.8 g/dL (12.0-16.0); Mean Corpuscular Hemoglobin 28.8 pg (27.0-31.0); Mean Corpuscular Volume 90.1 fl (78.0-98.0); Mean Platelet Volume 6.6 fL (7.4-10.4); Platelet Count 420 10x3/uL (130-400); RBC Distribution Width 14.2 % (11.5-14.5); Red Blood Cell (RBC) Count 3.75 mill/uL (4.20-5.40); White Blood Cell (WBC) Count 11.5 10x3/uL (4.8-10.8)
[2022-11-03 07:06] LABS: PTT 25.3 sec (22.9-36.1); Prothrombin Time 13.6 sec (12.0-14.7)
[2022-11-03 07:12] LABS: Anion Gap 12 mmol/L (10-20); BUN (Urea Nitrogen) 11 mg/dL (9.8-20.1); Calc. Creatinine Clearance 36 mL/min (70-130); Calcium 9.1 mg/dL (7.8-10.44); Carbon Dioxide 25 mmol/L (23-31); Chloride 101 mmol/L (98-107); Estimated GFR 69; Glucose 109 mg/dL (83-110); Potassium 3.4 mmol/L (3.5-5.1); Sodium 135 mmol/L (136-145)
[2022-11-03] MEDS: Famotidine/PF 20 mg/2ml Vial SLOW IVP SCH (08:10)
[2022-11-03] MEDS: Atorvastatin Calcium 40 MG TAB PO SCH (21:38)
[2022-11-03] MEDS: Amlodipine 10 MG TAB PO SCH (21:38)
[2022-11-04] MEDS: Acetaminophen 500 MG TAB PO SCH ×2 (05:30→13:40)
[2022-11-04 06:42] LABS: #Basophils 0.1 thou/uL (0.0-0.2); #Eosinphils 0.2 thou/uL (0.0-0.7); #Lymphocytes 2.1 thou/uL (1.20-3.40); #Monocytes 0.8 thou/uL (0.11-0.59); #Neutrophils 9.1 thou/uL (1.40-6.50); %Basophils 0.6 % (0.0-1.0); %Eosinophils 1.7 % (0.0-10.0); %Monocytes 6.3 % (0.0-10.0); %Neutrophils 74.4 % (42.0-75.0); Hemoglobin 11.3 g/dL (12.0-16.0); Mean Corpuscular HGB CONC 31.7 g/dL (32.0-36.0); Mean Corpuscular Hemoglobin 28.8 pg (27.0-31.0); Mean Corpuscular Volume 90.8 fl (78.0-98.0); Mean Platelet Volume 6.8 fL (7.4-10.4); Platelet Count 464 10x3/uL (130-400); RBC Distribution Width 14.2 % (11.5-14.5); Red Blood Cell (RBC) Count 3.94 mill/uL (4.20-5.40); White Blood Cell (WBC) Count 12.2 10x3/uL (4.8-10.8)
[2022-11-04 07:02] LABS: Anion Gap 14 mmol/L (10-20); BUN (Urea Nitrogen) 11 mg/dL (9.8-20.1); Calc. Creatinine Clearance 39 mL/min (70-130); Carbon Dioxide 25 mmol/L (23-31); Chloride 98 mmol/L (98-107); Estimated GFR 75; Glucose 90 mg/dL (83-110); Magnesium 1.8 mg/dL (1.6-2.6); Phosphorus 3.4 mg/dL (2.3-4.7); Potassium 3.6 mmol/L (3.5-5.1); Sodium 133 mmol/L (136-145)
[2022-11-04] MEDS ORDERED: Magnesium 2 GM/50 ML(in water) 2 GM in Premix Bag 1 BAG IVPB SCH (08:00)
[2022-11-04] MEDS ORDERED: Famotidine/PF 20 mg/2ml Vial SLOW IVP SCH (09:00)
[2022-11-04] MEDS: Amlodipine 10 MG TAB PO SCH (09:37)
[2022-11-04 15:39] VITALS: BP 157/65; TEMP 97.9
== END 2022-11-04 16:45 | DRG 86 ==
LOC: ERS 19:18 → SURG B 20:41
PROVIDERS: ADMIT Surgery; ATTEND Surgery
DX: S06.5X0A Traumatic subdural hemorrhage without loss of consciousness, initial encounter (principal); S32.059A Unspecified fracture of fifth lumbar vertebra, initial encounter for closed fracture; W19.XXXA Unspecified fall, initial encounter; I10 Essential (primary) hypertension; E11.9 Type 2 diabetes mellitus without complications; F03.90 Unspecified dementia, unspecified severity, without behavioral disturbance, psychotic disturbance, mood disturbance, and anxiety; E78.00 Pure hypercholesterolemia, unspecified; Z96.653 Presence of artificial knee joint, bilateral; M06.9 Rheumatoid arthritis, unspecified; Z90.710 Acquired absence of both cervix and uterus; Z98.890 Other specified postprocedural states; Y92.89 Other specified places as the place of occurrence of the external cause; Z88.1 Allergy status to other antibiotic agents; Z88.5 Allergy status to narcotic agent
CPT/HCPCS: 36415; 36416; 70450; 80048; 83735; 84100; 85025; 85610; 85730; G0390; J0360; J2272; J3475; S0028